=== PATIENT | male | born 2000 | race Caucasian/White ===

== ENCOUNTER 2018-03-11 12:49 | Emergency (ER) | payer MEDICAID ==
[2018-03-11 13:24] VITALS: BP 132/81; PULSE 75; RESP 16; TEMP 97.8; O2SAT 97
[2018-03-11] MEDS ORDERED: Tdap Vaccine 0.5 ml Vial (10-64 yrs) IM ONE ×2 (13:56→14:09)
[2018-03-11] MEDS ORDERED: Lidocaine 1% w Epi 1:100,000 Inj ONE (13:57)
[2018-03-11] MEDS ORDERED: Lidocaine 1% Inj (20ml) ONE (13:59)
[2018-03-11] MEDS ORDERED: Povidone Iodine Topical 10% Sol ONE (13:59)
--- NOTE | 2018-03-11 14:17 | ED PDOC ---
Upper Extremity Pain/Injury Time Seen by Provider: 03/11/18 13:51 Chief Complaint (Nursing): Abnormal Skin Integrity Chief Complaint (Provider): Abnormal Skin Integrity History Per: Patient History/Exam Limitations: no limitations Additional Complaint(s): 18 y/o male with history of mild cerebral palsy presents to the ED with laceration to his right hand after cutting himself with a knife. Patient reports he was trying to cut frozen hot dogs with a knife when it slipped cutting the palm of his right hand. Patient states he placed pressure then came to the ER. He states that bleeding has stopped and he has minimal pain to the area. Denies numbness or tingling in hand, or wrist pain. Patient does not believe he is UTD with his tetanus. Past Medical History Reviewed: Historical Data, Nursing Documentation, Vital Signs Vital Signs: Last Vital Signs Temp 97.8 F 03/11/18 13:22 Pulse 75 03/11/18 13:22 Resp 16 03/11/18 13:22 BP 132/81 03/11/18 13:22 Pulse Ox 97 03/11/18 13:22 - Medical History Other PMH: Cerebral palsy - Surgical History Surgical History: No Surg Hx - Family History Family History: States: Unknown Family Hx - Immunization History Hx Tetanus Toxoid Vaccination: No (unknown) - Home Medications Home Medications: Ambulatory Orders Medication Instructions Recorded Amoxicillin/Clavulanate [Augmentin 1 tab PO BID #14 tab 02/02/15 875 MG-125 MG] - Allergies Allergies/Adverse Reactions: Allergies Allergy/AdvReac Type Severity Reaction Status Date / Time No Known Allergies Allergy Verified 03/11/18 13:22 Review of Systems ROS Statement: Except As Marked, All Systems Reviewed And Found Negative Musculoskeletal: Positive for: Hand Pain (right hand laceration) Neurological: Negative for: Numbness Physical Exam - Reviewed Nursing Documentation Reviewed: Yes Vital Signs Reviewed: Yes - Physical Exam Appears: Positive for: No Acute Distress Head Exam: Positive for: ATRAUMATIC, NORMOCEPHALIC Pulses-Radial (L): 2+ Pulses-Radial (R): 2+ Extremity: Positive for: Capillary Refill (<2 seconds), Other (1.5 cm linear laceration on the palmar aspect of right hand between thumb and 2nd digit; no bleeding, erythema, or purulent drainage) Neurologic/Psych: Positive for: Alert, Oriented. Negative for: Motor/Sensory Deficits - ECG O2 Sat by Pulse Oximetry: 97 (RA) Pulse Ox Interpretation: Normal Medical Decision Making Medical Decision Making: Time: 14:09 Initial Impression: Laceration repair Initial Plan: * Laceration repair * Tetanus booster Scribe Attestation: Documented by Festus Siegel, acting as a scribe for Brittanie Hoang PA-C. Provider Scribe Attestation: All medical record entries made by the Scribe were at my direction and personal ly dictated by me. I have reviewed the chart and agree that the record accurately reflects my personal performance of the history, physical exam, medical decision making, and the department course for this patient. I have also personally directed, reviewed, and agree with the discharge instructions and disposition. Procedures - Laceration/Wound Repair Right Hand Wound Length (cm): 1.5 Wound's Depth, Shape: linear Wound Explored: clean Betadine Prep?: Yes Anesthesia: 1% Lidocaine Wound Repaired With: Sutures Suture Size/Type: 5:0, nylon (Ethilon) Number of Sutures: 2 Wound Complexity: Simple Disposition - Clinical Impression Clinical Impression: Hand laceration - Disposition Referrals: Rj Guadalupe MD [Family Provider] - Disposition: Routine/Home Disposition Time: 15:35 Condition: STABLE Additional Instructions: Keep area covered and dry for the next 24hrs then remove dressing and clean with some soap and water gently. Then leave open to the air and can use Neosporin. Sutures to be removed in 7 - 10 days. You can go to Primary care doctor or return to ER for suture removal. Tylenol or ibuprofen for pain management. Forms: [employer] (Spanish), [facility] ED School/Work Excuse Print Language: [email or web address]
[2018-03-11] MEDS ORDERED: Bacitracin 500 Units/gm Oint Foilpak UD ONE (15:26)
== END 2018-03-11 15:39 | disposition home or self-care (01) ==
LOC: H.ER 12:49
DX: S61.411A Laceration without foreign body of right hand, initial encounter (principal); W26.0XXA Contact with knife, initial encounter; Y93.G1 Activity, food preparation and clean up; G80.9 Cerebral palsy, unspecified; Z23 Encounter for immunization